=== PATIENT | female | born 1995 | race Caucasian/White ===

== ENCOUNTER 2018-10-06 13:50 | Emergency (ER) | payer BC ==
--- NOTE | 2018-10-06 14:15 | UC ---
Eye Complaint HPI - HPI Summary HPI Summary: 23-year-old 23-year-old woman was to clinic today with a chief complaint of bilateral eye redness and discharge been going off mother week. One week ago she started on gentamicin eyedrops and the redness and discharge has continued. It's in both eyes. No runny nose no sore throat no ear pain no known trauma. No vision change. - History of Current Complaint Stated Complaint: EYE ISSUE Time Seen by Provider: 10/06/18 14:03 - Allergies/Home Medications Allergies/Adverse Reactions: Allergies Allergy/AdvReac Type Severity Reaction Status Date / Time shellfish derived Allergy Swelling Verified 10/06/18 14:13 Home Medications: Home Medications Albuterol HFA INHALER* [Ventolin HFA Inhaler*] 2 puff INH Q4H PRN 10/06/18 [ History Confirmed 10/06/18] PMH/Surg Hx/FS Hx/Imm Hx Previously Healthy: Yes - Family History Known Family History: Positive: Non-Contributory Review of Systems All Other Systems Reviewed And Are Negative: Yes Constitutional: Positive: Negative Skin: Positive: Negative Eyes: Positive: Drainage, Eye Redness. Negative: Blurred Vision, Photophobia ENT: Positive: Negative Respiratory: Positive: Negative Cardiovascular: Positive: Negative Gastrointestinal: Positive: Negative Motor: Positive: Negative Neurovascular: Positive: Negative Musculoskeletal: Positive: Negative Neurological: Positive: Negative Psychological: Positive: Negative Is Patient Immunocompromised?: No Physical Exam Triage Information Reviewed: Yes Appearance: Well-Appearing, No Pain Distress, Well-Nourished Vital Signs Reviewed: Yes Eyes: Positive: Conjunctiva Inflamed, Discharge, Other: - PERRLA/EOMI, NO FB ON EXAM ENT Exam: Normal ENT: Positive: Hearing grossly normal, Pharynx normal, TMs normal Neck exam: Normal Neck: Positive: Supple Respiratory: Positive: No respiratory distress Musculoskeletal Exam: Normal Musculoskeletal: Positive: Strength Intact, ROM Intact Neurological Exam: Normal Neurological: Positive: Alert, Muscle Tone Normal Psychological Exam: Normal Psychological: Positive: Age Appropriate Behavior Skin Exam: Normal Eye Complaint Course/Dx - Course Course Of Treatment: The patient was on gentamicin eyedrops. We discussed the possibility of allergens versus sinusitis versus bacterial resistance making her conjunctivitis not improved. We will switched to tobramycin ointment. I also wrote for ketorolac eyedrops. Also Augmentin to treat any possible sinusitis. The plan is for her to follow up with ophthalmology if not completely improved. - Differential Dx/Diagnosis Provider Diagnosis: Conjunctivitis, both eyes Discharge - Sign-Out/Discharge Documenting (check all that apply): Patient Departure All imaging exams completed and their final reports reviewed: No Studies - Discharge Plan Condition: Stable Disposition: HOME Prescriptions: Amoxicillin/Clavulanate TAB* [Augmentin TAB 875*] 875 mg PO BID #20 tab Ketorolac 0.5% OPHTH (NF) 1 drop BOTH EYES QID #1 btl Tobramycin 0.3% OPHTH.OINT* [Tobrex 0.3% OPHTH.OINT*] 1 applic BOTH EYES Q4H #1 tube Patient Education Materials: Conjunctivitis (ED) Referrals: Georges Alex MD [Medical Doctor] - Additional Instructions: FOLLOW UP WITH OPHTHALMOLOGY, DR ALEX, IF NOT COMPLETELY IMPROVED. GET RECHECKED FOR ANY WORSENING OF YOUR CONDITION OR QUESTIONS OR CONCERNS. - Billing Disposition and Condition Condition: STABLE Disposition: Home
== END 2018-10-06 14:28 | disposition home or self-care (01) ==
LOC: UCEAST 13:50
DX: H10.9 Unspecified conjunctivitis (principal); Z91.013 Allergy to seafood
CPT/HCPCS: 99202; G0463